=== PATIENT | female | born 1985 | race Two or more races ===

== ENCOUNTER 2025-06-28 20:35 | Emergency (ER) | payer MEDICAID, OTHER ==
[~2025-06-28] VITALS: Ht 162.6 cm; Wt 72.7 kg
--- NOTE | 2025-06-28 21:28 | ED.PDOC ---
History of Present Illness HPI Comments 31-year-old female with a it is noted to be with a history of 2 prior miscarriages presents to the ED via emergency services for the chief complaint of abnormal vaginal bleeding, with the associated back pain. Patient states that her symptoms started earlier this afternoon upon using the restroom and n oticing blood colored urine and blood clots. EMS notes that patient's initial blood pressure was 67/30, post noted to improve to 91/66 to administering IV fluids. Patient denies any headache, weakness, blurry vision, abdominal pain, cramping, dysuria, or any other associated symptoms, modifying at this time. PHYSICAL EXAM: General: Awake, alert and oriented. No acute distress. Skin: Skin in warm, dry and intact without rashes or lesions. HEENT: The head is normocephalic and atraumatic. Conjunctivae are clear without exudates or hemorrhage. Sclera is non-icteric. Neck: Normal range of motion. No JVD. Cardiac: Regular rate Respiratory: No signs of respiratory distress. No Stridor. Abdomen: Nontender Extremities: Upper and lower extremities are atraumatic in appearance without deformity. Neurological: The patient is awake, alert and oriented to person, place, and time with normal speech. Speech is clear. There is no facial asymmetry. Psychiatric: Appropriate mood and affect. Good judgement and insight. REVIEW OF SYSTEMS: General: No fever, no chills, or fatigue HEENT: No sore throat, no earache, no congestion, no neck pain. Cardiac: No chest pain. No palpitations. Lungs: No shortness of breath, no cough. GI: No nausea, no vomiting, no diarrhea, no constipation, no abdominal pain : No dysuria, frequency, or urgency. No hematuria. Musculoskeletal: No joint pain , no joint swelling, no extremity edema. Skin: No rash, no itching. Neuro: No headache, no dizziness, no weakness Gynecology: Abnormal vaginal bleeding, clots, spotting Chief Complaint: Vaginal Bleed Time Seen by MD: 21:24 Reviewed Notes: Nurses Notes, Medications, Allergies Allergies: Coded Allergies: NO KNOWN ALLERGIES (Unverified , 06/28/25) Information Source: Patient Mode of Arrival: EMS Severity: Moderate Timing: Hours Duration: Since onset, Hours Prehospital treatment: None Past Medical History PAST MEDICAL HISTORY: Denies Surgical History: Denies all surgeries CAFE AIDE History: No Pertinent CAFE AIDE History Family History Family History: Unknown Social History Smoker: Non-Smoker Alcohol: Denies ETOH Use Drugs: Denies Drug Use Lives In: Home Was a procedure done? Was a procedure done?: No Differential Dx Considerations may include: , ectopic , miscarriage, anemic, urinary tract infection, other X-Ray, Labs, Meds, VS Vital Signs Date Time Temp Pulse Resp B/P (MAP) Pulse Ox O2 Delivery O2 Flow Rate FiO2 06/28/25 21:52 98.1 80 20 98/51 (67) 98 98.1 06/28/25 21:52 80 20 97 Room Air* 0 21 06/28/25 20:45 98.5 110 18 93/64 100 98.5 Lab Test 06/28/25 21:38 Range/Units White Blood Count 14.7 H 4.4-10.8 10^3/uL Red Blood Count 3.75 L 4.0-5.20 10^6/uL Hemoglobin 11.3 L 12.2-16.2 g/dL Hematocrit 32.6 L 36.0-46.0 % Mean Corpuscular Volume 86.9 80.0-100.0 fL Mean Corpuscular Hemoglobin 30.0 28.0-32.0 pg Mean Corpuscular Hemoglobin Concent 34.6 32.0-36.0 g/dL Red Cell Distribution Width 13.3 11.8-14.3 % Platelet Count 288 140-450 10^3/uL Mean Platelet Volume 8.2 6.9-10.8 fL Neutrophils (%) (Auto) 76.2 37.0-80.0 % Lymphocytes (%) (Auto) 17.8 10.0-50.0 % Monocytes (%) (Auto) 3.7 0.0-12.0 % Eosinophils (%) (Auto) 1.8 0.0-7.0 % Basophils (%) (Auto) 0.5 0.0-2.0 % Neutrophils # (Auto) 11.2 H 1.6-8.6 10 ^3/uL Lymphocytes # (Auto) 2.6 0.4-5.4 10 ^3/uL Monocytes # (Auto) 0.5 0-1.3 10 ^3/uL Eosinophils # (Auto) 0.3 0-0.8 10 ^3/uL Basophils # (Auto) 0.1 0-0.2 10 ^3/uL Nucleated Red Blood Cells 0.1 % Sodium Level 141 136-145 mmol/L Potassium Level 3.6 3.5-5.1 mmol/L Chloride Level 112 H 98-107 mmol/L Carbon Dioxide Level 21 20-31 mmol/L Anion Gap 8 5-15 Blood Urea Nitrogen 8 L 9-23 mg/dL Creatinine 0.75 0.550-1.02 mg/dL Glomerular Filtration Rate Calc 104 >90 mL/min BUN/Creatinine Ratio 10.7 10.0-20.0 Serum Glucose 117 H 74-106 mg/dL Calcium Level 8.4 L 8.7-10.4 mg/dL Beta HCG, Quantitative 6689.3 H 1.5-4.2 mIU/mL Time of 1ST Reevaluation: 21:54 Reevaluation 1ST: Unchanged Patient Education/Counseling: Diagnosis, Treatment, Need For Follow Up Family Education/Counseling: No Family Present SEPSIS Sepsis Screen Physician Orders Test, Urine (06/28/25 21:05) Urinalysis (06/28/25 21:05) Chlamydia/Gc Amplification (06/28/25 21:05) Vital Signs Date Time Temp Pulse Resp B/P (MAP) Pulse Ox O2 Delivery O2 Flow Rate FiO2 06/28/25 21:52 98.1 80 20 98/51 (67) 98 98.1 06/28/25 21:52 80 20 97 Room Air* 0 21 06/28/25 20:45 98.5 110 18 93/64 100 98.5 Laboratory Tests Test 06/28/25 21:38 White Blood Count 14.7 10^3/uL (4.4-10.8) H Departure 1 Departure Time of Disposition: 00:25 Impression: Primary Impression: Vaginal bleeding in Additional Impression: Eloped from emergency department Disposition: LEFT AWOL/ELOPED Condition: Other Comments Patient was seen and evaluated on arrival to the emergency department. Discussed plan of care with the patient. She eloped from the emergency department prior to completing treatment and workup. Critical Care Note Critical Care Time?: No Stability Stability form required: No Heart Score Heart Score: Heart Score Response (Comments) Value History N/A 0 EKG N/A 0 Age N/A 0 Risk Factors N/A 0 Troponin N/A 0 Total 0 I personally scribed for DENZEL PINON MD ([email or web address]) on 06/28/25 at 21:28. Electronically submitted by Isidro Ramachandran ([email or web address]). DENZEL PINON MD Jun 28, 2025 21:28
[2025-06-28 21:52] VITALS: BP 98/51; PULSE 80; RESP 20; TEMP 98.1; O2SAT 97
[2025-06-28 22:00] LABS: Hematocrit 32.6 % (36.0-46.0); Hemoglobin 11.3 g/dL (12.2-16.2); Mean Corpuscular Hemoglobin 30.0 pg (28.0-32.0); Mean Corpuscular Volume 86.9 fL (80.0-100.0); Nucleated Red Blood Cells % 0.1 %
[2025-06-28 22:10] LABS: Potassium 3.6 mmol/L (3.5-5.1); Sodium 141 mmol/L (136-145)
[2025-06-28 22:11] LABS: Anion Gap 8 (5-15); Carbon Dioxide 21 mmol/L (20-31)
[2025-06-28 22:16] LABS: BUN/Creatinine Ratio 10.7 (10.0-20.0)
[2025-06-28 22:25] LABS: Blood Urea Nitrogen 8 mg/dL (9-23); Calcium 8.4 mg/dL (8.7-10.4); Chloride 112 mmol/L (98-107); Glucose 117 mg/dL (74-106)
== END 2025-06-28 23:36 | disposition left against medical advice (07) ==
LOC: ER 20:35 → EDBD 20:35 → ER 23:36
DX: O20.0 Threatened abortion (principal); Z3A.01 Less than 8 weeks gestation of pregnancy
CPT/HCPCS: 80048; 84702